=== PATIENT | female | born 1985 | race Caucasian/White ===

== ENCOUNTER → 2016-11-27 | Outpatient (CLI) | payer OTHER ==
[~2016-11-27] MED LIST: AMBIEN 10MG10 MG PO; BIOTIN10000 MC1 PO; CALCIUM ANTAC1000 M2 PO; DESYREL 100MG100 MG PO; DESYREL 50MG50 MG PO; FISH OIL1000 MG PO; LAMICTAL150 MG PO; LEVAQUIN 750MG750 M1 PO; MAREPA1200 MG PO; MULTIVITAMIN1 CTB PO; NEXIUM 40MG40 MG PO; PROAIR HFA0.09 MG/AC IH; TESSALON P100 MG/CAP PO; XANAX 1MG1 MG PO; ZOLOFT 100MG100 MG PO; ZYRTEC 10MG10 MG PO
== END ==
LOC: BHSO 09:01
DX: F31.31 Bipolar disorder, current episode depressed, mild (principal)

== ENCOUNTER → 2016-12-14 | Outpatient (CLI) | payer OTHER | LOC: BHSO 08:58 | DX: F31.31 Bipolar disorder, current episode depressed, mild (principal) ==

== ENCOUNTER 2017-01-09 06:46 | Observation (INO) | payer OTHER ==
[~2017-01-09] VITALS: Ht 160 cm; Wt 78.0 kg
[2017-01-09] VITALS (663 sets, daily range): BP systolic 105–121; BP diastolic 48–78; PULSE 65–70; TEMP 97.7–97.9; O2SAT 85–100
[~2017-01-09 06:46] MED LIST changes: -LAMICTAL150 MG PO; +LAMICTAL200 MG PO
[2017-01-09 07:21] LABS: BASO % 0.3 % (0.0-2.0); EOS # 0.1 (0.0-0.7); GRAN # 4.2 (1.4-6.5); GRAN % 58.4 % (42.2-75.2); HEMATOCRIT 38.4 % (37.0-47.0); HEMOGLOBIN 12.9 g/dl (12.5-16.0); LYMPH # 2.3 (1.2-3.4); LYMPH % 32.8 % (20.0-51.0); MEAN CELL VOLUME 92 fl (80.0-100.0); MEAN CORPUSCULAR HEMOGLOBIN 31 pg (27.0-31.0); MEAN CORPUSCULAR HGB CONC 34 g/dl (33.0-37.0); MEAN PLATELET VOLUME 9.4 fl (7.4-10.4); MONO # 0.5 (0.1-0.6); MONO % 7.2 % (1.7-9.3); PLATELET COUNT 236 K/mm3 (130-400); RED BLOOD COUNT 4.17 M/mm3 (4.10-5.30); WHITE BLOOD COUNT 7.1 K/mm3 (4.8-10.8)
[2017-01-09 07:31] LABS: ADJUSTED CALCIUM 9.1 mg/dL (8.4-10.2); ALANINE AMINOTRANSFERASE 25 U/L (9-52); ALBUMIN 4.8 gm/dL (3.5-5.0); ALKALINE PHOSPHATASE 46 U/L (50-136); ANION GAP 12 mmol/L (7-16); BILIRUBIN,TOTAL 0.3 mg/dL (0.0-1.0); BLOOD UREA NITROGEN 16 mg/dL (7-17); CALCIUM 9.7 mg/dL (8.4-10.2); CARBON DIOXIDE 24 mmol/L (22-30); CHLORIDE 105 mmol/L (98-107); CREATININE, serum 0.73 mg/dL (0.52-1.25); GLUCOSE 97 mg/dL (74-106); POTASSIUM 3.6 mmol/L (3.4-5.0); SODIUM 141 mmol/L (137-145); TOTAL PROTEIN 7.7 gm/dL (6.4-8.2)
[2017-01-09 07:32] LABS: ACETAMINOPHEN < 10 ug/mL (10-30); ALCOHOL(ethanol),MEDICAL < 10 mg/dL; SALICYLATE < 1.0 mg/dL
[2017-01-09 07:42] LABS: AMPHETAMINE URINE NEGATIVE; BARBITURATES URINE NEGATIVE; BENZODIAZEPINES URINE POSITIVE; BUPRENORPHINE URINE NEGATIVE; METHADONE URINE NEGATIVE; OPIATES URINE NEGATIVE; OXYCODONE URINE NEGATIVE; PHENCYCLIDINE URINE NEGATIVE; PROPOXYPHENE URINE NEGATIVE; THC CANNABINOIDS URINE NEGATIVE; TRICYCLIC ANTIDEPRESS URINE NEGATIVE
[2017-01-09] MEDS ORDERED: EFFEXOR XR37.5 MG/CA PO (11:24)
[2017-01-09] MEDS ORDERED: LATUDA40 MG PO (11:24)
[2017-01-09] MEDS ORDERED: RESTORIL30 MG PO (11:25)
[2017-01-09] MEDS ORDERED: CLINDAGEL 40 ML40 ML TOP (11:26)
[2017-01-10] VITALS (393 sets, daily range): BP systolic 98–124; BP diastolic 65–81; PULSE 59–83; TEMP 97.4–97.8; O2SAT 92–100
[2017-01-10 05:23] LABS: BASO % 0.2 % (0.0-2.0); EOS # 0.1 (0.0-0.7); EOS % 1.5 % (0-4.0); GRAN # 1.9 (1.4-6.5); GRAN % 34.5 % (42.2-75.2); LYMPH # 3.1 (1.2-3.4); LYMPH % 57.5 % (20.0-51.0); MEAN CELL VOLUME 94 fl (80.0-100.0); MEAN CORPUSCULAR HGB CONC 33 g/dl (33.0-37.0); MEAN PLATELET VOLUME 9.4 fl (7.4-10.4); MONO # 0.3 (0.1-0.6); MONO % 6.3 % (1.7-9.3); PLATELET COUNT 210 K/mm3 (130-400); RED BLOOD COUNT 3.69 M/mm3 (4.10-5.30); WHITE BLOOD COUNT 5.4 K/mm3 (4.8-10.8)
[2017-01-10 05:24] LABS: HEMATOCRIT 34.5 % (37.0-47.0); HEMOGLOBIN 11.3 g/dl (12.5-16.0); MEAN CORPUSCULAR HEMOGLOBIN 31 pg (27.0-31.0)
[2017-01-10 05:34] LABS: ALBUMIN 3.5 gm/dL (3.5-5.0); BILIRUBIN,TOTAL 0.4 mg/dL (0.0-1.0); CALCIUM 8.6 mg/dL (8.4-10.2); CREATININE, serum 0.65 mg/dL (0.52-1.25); MAGNESIUM 1.6 mg/dL (1.6-2.3); POTASSIUM 4.4 mmol/L (3.4-5.0)
== END 2017-01-10 23:28 ==
LOC: COL.ER 06:46 → ICU 09:46
PROVIDERS: Internal Medicine; Physician Assistant
DX: T42.4X2A Poisoning by benzodiazepines, intentional self-harm, initial encounter (principal); F31.9 Bipolar disorder, unspecified; F60.3 Borderline personality disorder; F41.9 Anxiety disorder, unspecified; F41.0 Panic disorder [episodic paroxysmal anxiety]; G47.00 Insomnia, unspecified
CPT/HCPCS: 99222-AI; 99232-AI; G0378; J1650; J2310; J3480; J7030

== ENCOUNTER → 2017-01-17 | Outpatient (CLI) | payer OTHER ==
[~2017-01-17] MED LIST changes: +CLINDAGEL 40 ML40 ML TOP; +EFFEXOR XR37.5 MG/CA PO; +LATUDA40 MG PO; +RESTORIL30 MG PO
== END ==
LOC: BHSO 14:04
DX: Z01.89 Encounter for other specified special examinations (principal)

== ENCOUNTER → 2017-02-22 | Outpatient (CLI) | payer OTHER | LOC: BHSO 14:07 | DX: F31.32 Bipolar disorder, current episode depressed, moderate (principal) ==

== ENCOUNTER → 2017-03-22 | Outpatient (CLI) | payer OTHER | LOC: BHSO 13:57 | DX: F31.31 Bipolar disorder, current episode depressed, mild (principal) ==

== ENCOUNTER → 2017-03-29 | Outpatient (CLI) | payer OTHER | LOC: BHSO 14:00 | DX: F31.31 Bipolar disorder, current episode depressed, mild (principal) ==

== ENCOUNTER → 2017-04-05 | Outpatient (CLI) | payer OTHER | LOC: BHSO 13:54 | DX: F31.12 Bipolar disorder, current episode manic without psychotic features, moderate (principal) ==

== ENCOUNTER → 2017-05-10 | Outpatient (CLI) | payer OTHER | LOC: BHSO 13:58 | DX: F31.31 Bipolar disorder, current episode depressed, mild (principal) ==

== ENCOUNTER → 2017-05-17 | Outpatient (CLI) | payer OTHER | LOC: BHSO 13:58 | DX: F31.31 Bipolar disorder, current episode depressed, mild (principal) ==

== ENCOUNTER → 2017-05-24 | Outpatient (CLI) | payer OTHER | LOC: BHSO 14:00 | DX: F31.31 Bipolar disorder, current episode depressed, mild (principal) ==

== ENCOUNTER → 2017-06-28 | Outpatient (CLI) | payer OTHER | LOC: BHSO 14:01 | DX: F31.11 Bipolar disorder, current episode manic without psychotic features, mild (principal) ==

== ENCOUNTER → 2017-07-18 | Outpatient (CLI) | payer OTHER | LOC: BHSO 14:56 | DX: F31.11 Bipolar disorder, current episode manic without psychotic features, mild (principal) ==

== ENCOUNTER → 2017-08-09 | Outpatient (CLI) | payer OTHER | LOC: BHSO 14:02 | DX: F31.11 Bipolar disorder, current episode manic without psychotic features, mild (principal) ==

== ENCOUNTER → 2017-08-16 | Outpatient (CLI) | payer OTHER | LOC: BHSO 11:03 | DX: F31.11 Bipolar disorder, current episode manic without psychotic features, mild (principal) ==

== ENCOUNTER → 2017-08-23 | Outpatient (CLI) | payer OTHER | LOC: BHSO 10:59 | DX: F31.11 Bipolar disorder, current episode manic without psychotic features, mild (principal) ==

== ENCOUNTER → 2017-08-30 | Outpatient (CLI) | payer OTHER | LOC: BHSO 11:03 | DX: F31.11 Bipolar disorder, current episode manic without psychotic features, mild (principal) ==

== ENCOUNTER → 2017-09-06 | Outpatient (CLI) | payer OTHER | LOC: BHSO 10:55 | DX: F31.11 Bipolar disorder, current episode manic without psychotic features, mild (principal) ==

== ENCOUNTER → 2017-09-13 | Outpatient (CLI) | payer OTHER | LOC: BHSO 10:53 | DX: F31.11 Bipolar disorder, current episode manic without psychotic features, mild (principal) ==

== ENCOUNTER → 2017-10-04 | Outpatient (CLI) | payer OTHER | LOC: BHSO 10:02 | DX: F31.81 Bipolar II disorder (principal) ==

== ENCOUNTER → 2017-10-24 | Outpatient (CLI) | payer OTHER | LOC: BHSO 11:01 | DX: F31.11 Bipolar disorder, current episode manic without psychotic features, mild (principal) ==

== ENCOUNTER → 2017-11-29 | Outpatient (CLI) | payer OTHER | LOC: BHSO 10:59 | DX: F31.11 Bipolar disorder, current episode manic without psychotic features, mild (principal) ==

== ENCOUNTER → 2017-12-13 | Outpatient (CLI) | payer OTHER | LOC: BHSO 10:59 | DX: F31.81 Bipolar II disorder (principal) ==

== ENCOUNTER → 2017-12-19 | Outpatient (CLI) | payer OTHER | LOC: BHSO 10:58 | DX: F31.11 Bipolar disorder, current episode manic without psychotic features, mild (principal) ==

== ENCOUNTER → 2018-03-14 | Outpatient (CLI) | payer OTHER | LOC: BHSO 13:14 | DX: F31.11 Bipolar disorder, current episode manic without psychotic features, mild (principal) ==

== ENCOUNTER → 2018-03-28 | Outpatient (CLI) | payer OTHER | LOC: BHSO 13:55 | DX: F31.11 Bipolar disorder, current episode manic without psychotic features, mild (principal) ==

== ENCOUNTER → 2018-04-11 | Outpatient (CLI) | payer OTHER | LOC: BHSO 13:00 | DX: F31.11 Bipolar disorder, current episode manic without psychotic features, mild (principal) ==

== ENCOUNTER → 2018-04-18 | Outpatient (CLI) | payer OTHER | LOC: BHSO 14:02 | DX: F31.81 Bipolar II disorder (principal) ==

== ENCOUNTER → 2019-03-05 | Outpatient (CLI) | payer OTHER | LOC: BHSO 08:54 | DX: F31.11 Bipolar disorder, current episode manic without psychotic features, mild (principal) ==

== ENCOUNTER → 2019-03-18 | Outpatient (CLI) | payer OTHER | LOC: BHSO 10:56 | DX: F31.11 Bipolar disorder, current episode manic without psychotic features, mild (principal) ==

== ENCOUNTER → 2019-04-03 | Outpatient (CLI) | payer OTHER | LOC: BHSO 08:58 | DX: F31.81 Bipolar II disorder (principal) ==

== ENCOUNTER → 2019-04-08 | Outpatient (CLI) | payer OTHER | LOC: BHSO 08:53 | DX: F31.11 Bipolar disorder, current episode manic without psychotic features, mild (principal) ==

== ENCOUNTER → 2019-04-24 | Outpatient (CLI) | payer OTHER | LOC: BHSO 09:01 | DX: F31.81 Bipolar II disorder (principal) ==

== ENCOUNTER → 2019-05-01 | Outpatient (CLI) | payer OTHER | LOC: BHSO 09:13 | DX: F31.81 Bipolar II disorder (principal) ==

== ENCOUNTER → 2019-05-29 | Outpatient (CLI) | payer OTHER | LOC: BHSO 09:00 | DX: F31.11 Bipolar disorder, current episode manic without psychotic features, mild (principal) ==

== ENCOUNTER → 2019-06-02 | Outpatient (CLI) | payer OTHER | LOC: BHSO 13:00 | DX: F31.11 Bipolar disorder, current episode manic without psychotic features, mild (principal) ==

== ENCOUNTER → 2019-06-12 | Outpatient (CLI) | payer OTHER | LOC: BHSO 09:00 | DX: F31.11 Bipolar disorder, current episode manic without psychotic features, mild (principal) ==

== ENCOUNTER → 2019-06-19 | Outpatient (CLI) | payer OTHER | LOC: BHSO 08:58 | DX: F31.11 Bipolar disorder, current episode manic without psychotic features, mild (principal) ==

== ENCOUNTER → 2019-07-03 | Outpatient (CLI) | payer OTHER | LOC: BHSO 10:10 | DX: F31.81 Bipolar II disorder (principal) ==

== ENCOUNTER → 2019-07-10 | Outpatient (CLI) | payer OTHER | LOC: BHSO 09:00 | DX: F31.11 Bipolar disorder, current episode manic without psychotic features, mild (principal) ==

== ENCOUNTER → 2019-07-24 | Outpatient (CLI) | payer OTHER | LOC: BHSO 09:10 | DX: F31.11 Bipolar disorder, current episode manic without psychotic features, mild (principal) ==

== ENCOUNTER → 2019-10-23 | Outpatient (CLI) | payer OTHER | LOC: BHSO 09:01 | DX: F31.11 Bipolar disorder, current episode manic without psychotic features, mild (principal) ==

== ENCOUNTER → 2019-11-06 | Outpatient (CLI) | payer OTHER | LOC: BHSO 09:04 | DX: F31.11 Bipolar disorder, current episode manic without psychotic features, mild (principal) ==

== ENCOUNTER → 2019-11-13 | Outpatient (CLI) | payer OTHER | LOC: BHSO 08:59 | DX: F31.11 Bipolar disorder, current episode manic without psychotic features, mild (principal) ==

== ENCOUNTER → 2019-12-16 | Outpatient (CLI) | payer OTHER | LOC: BHSO 09:01 | DX: F31.11 Bipolar disorder, current episode manic without psychotic features, mild (principal) ==

== ENCOUNTER → 2019-12-21 | Outpatient (CLI) | payer OTHER ==
[~2019-12-21] MED LIST changes: -DESYREL 100MG100 MG PO; +DESYREL DIVIDO150 M1 PO; -LATUDA40 MG PO; +LATUDA80 MG PO; +RESTORIL 1515 MG/CAP PO; -RESTORIL30 MG PO
== END ==
LOC: BHSO 13:02
DX: F31.11 Bipolar disorder, current episode manic without psychotic features, mild (principal)

== ENCOUNTER → 2019-12-21 | Outpatient (CLI) | payer OTHER ==
[~2019-12-21] VITALS: Ht 160 cm; Wt 108.9 kg
[2019-12-21 15:41] VITALS: BP 124/74; PULSE 88
== END ==
LOC: LIGHT 09:31
DX: E66.01 Morbid (severe) obesity due to excess calories (principal); Z68.41 Body mass index [BMI] 40.0-44.9, adult; Z98.84 Bariatric surgery status
CPT/HCPCS: G0463

== ENCOUNTER → 2020-01-21 | Outpatient (CLI) | payer OTHER | LOC: COL.RAD 06:58 | DX: N28.1 Cyst of kidney, acquired (principal); Z98.84 Bariatric surgery status | CPT/HCPCS: Q9967 ==

== ENCOUNTER 2020-02-23 06:24 | Day surgery (SDC) | payer OTHER ==
[~2020-02-23] VITALS: Ht 162.6 cm; Wt 108.3 kg
[2020-02-23] MEDS ORDERED: ADIPEX-P37.5 MG PO (06:36)
[2020-02-23] MEDS ORDERED: PRILOSEC 20MG20 MG PO (06:36)
[2020-02-23 06:37] VITALS: BP 129/89; PULSE 86; TEMP 98.3
[2020-02-23 07:50] VITALS: BP 109/60; PULSE 78; TEMP 97.8
--- NOTE | 2020-02-23 07:50 | NUR ---
The patient arrived back to [facility] at this time. The patient ambulated from the cart to the recliner in her room with the stand by assistance of one nurse and appeared to tolerate the actvity well. Post procedure vital signs were started at this time. The patient agrees to try some apple juice and a muffin at this time. Will continue to monitor the patient. Call light is within reach. Will continue to monitor the patient.
[2020-02-23 08:05] VITALS: BP 113/81; PULSE 72
--- NOTE | 2020-02-23 08:05 | NUR ---
The patient appears to be tolerating the food and drink well. Vital signs appear stable. The patient is going to text her ride to let them know she will be ready for discharge in the next 20-30 minutes. Will continue to monitor the patient.
[2020-02-23 08:20] VITALS: BP 110/76; PULSE 75
--- NOTE | 2020-02-23 08:20 | NUR ---
Discharge instructions were reviewed with the paitent at this time. She verbalized understanding and has no questions for the nurse at this time. The patient's IV to her right hand was removed and a pressure dressing was applied to the site. The nurse instructed the patient to get dressed and notify the staff when she is ready to be escorted out.
--- NOTE | 2020-02-23 08:30 | NUR ---
The patient was escorted out via wheelchair to a private vehicle by MICHAEL Noel. The patient's belongings and discharge paperwork were sent with her. The patient's friend, Duc, is present to drive her home.
== END 2020-02-23 08:30 | disposition home or self-care (01) ==
LOC: SDCO 06:24
DX: K44.9 Diaphragmatic hernia without obstruction or gangrene (principal); E66.01 Morbid (severe) obesity due to excess calories; Z68.41 Body mass index [BMI] 40.0-44.9, adult; F41.9 Anxiety disorder, unspecified; I10 Essential (primary) hypertension; K21.9 Gastro-esophageal reflux disease without esophagitis; G89.29 Other chronic pain; F32.9 Major depressive disorder, single episode, unspecified
CPT/HCPCS: J2704; J7030